=== PATIENT | female | born 1950 | race Caucasian/White ===

== ENCOUNTER 2017-02-06 06:18 | Day surgery (SDC) ==
[2015-10-01 11:07] VITALS: BMI 26.6
[2017-02-06] MEDS ORDERED: LIDOCAINE 2% 20 ML MDV ONE (07:10)
[2017-02-06] MEDS ORDERED: LIDOCAINE 1% 20 ML MDV ID ONE (07:10)
[2017-02-06] MEDS ORDERED: VERSED ONE (08:05)
[2017-02-06] MEDS ORDERED: DIPRIVAN 20 ML VIAL IVP ONE (08:05)
[2017-02-06] MEDS ORDERED: LIDOCAINE HCL 2% LUER-JET ONE (08:05)
[2017-02-06 09:26] VITALS: BP 105/64; TEMP 98.2
--- NOTE | 2017-02-06 15:09 | OP ---
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 She also has some lower abdominal discomfort chronically for years, a remote history of polyps unknown Histology and intermittent loose stools. MEDICATIONS: SEE ANESTHESIA NOTES. PROCEDURE: 1. ENDOSCOPY 2. Colonoscopy biopsy. REPORT: The risks, benefits, alternatives and limitations were discussed in detail with the patient. Informed consent was obtained. After adequate sedation was achieved, the video endoscope was introduced in the posterior pharynx and esophagus under direct vision and easily advanced down to the second portion of the duodenum. I then slowly withdrew. The duodenal mucosa appeared unremarkable as did the duodenal bulb. The antrum and body were relatively unremarkable. The scope was retroflexed to look at the cardia and fundus which was unremarkable. The scope was anteflexed and withdrawn back through the esophagus. At the GE junction there is mild stricturing causing very mild luminal narrowing. In the very distal esophagus there is small esophageal varices that were completely flattened. There were 0+. With the lumen decompressed they were still relatively flat. Because of the presence of varices, I did not feel it was in her best interest to dilate the stricture due to the risk of bleeding. The remaining esophagus appeared unremarkable. The patient tolerated the procedure well with stable vital signs and pulse oximetry throughout. The patient's bed was turned and digital rectal exam revealed good tone, no mass. The colonoscope was introduced into the rectum and advanced under direct visual guidance to the cecum. The cecum was identified by the appendiceal orifice and IC valve. I then slowly withdrew the scope in circumferential manner and examined the mucosa quite carefully. I looked on the proximal and distal side of folds and flexures as best as possible. I was able to retroflex the scope in the right colon and left colon to increase visualization. The colonic mucosa is remarkable all the way down to the rectum. Here in the rectum there is a little bit of inflammatory changes manifested by small patches of mucus over inflammation. I biopsied this area for histologic review I had also previously biopsied randomly from the right colon and the left colon in the sigmoid area. No other inflammatory changes are noted. Again these changes were mild and in the distal 3cm of the rectum. On retroflex view of the rectum I did see 1+ internal hemorrhoids. The patient tolerated the procedure well with stable vital signs and pulse oximetry throughout. IMPRESSION: 1. Non-engorged 0+ small soft esophageal varices 2. Otherwise unremarkable endoscopy exam 3. Minimal proctitis. I question whether this is a sign of inflammatory bowel disease or irritation from frequent defecation 4. 1+ internal hemorrhoids RECOMMENDATIONS: 1. Advised her to make sure she cuts and chews her food well 2. We will wait random biopsy results and biopsies of the rectum for histologic review. 3. We are going to send off to [facility] and IBD as GI diagnostic first step 4. Trial of Lialda 1.2 grams two tablets PO daily 5. I suggested daily fiber supplements such as Citrucel or Metamucil 8-10 grams daily 6. Office visit in six weeks to go over results. 7. Recommend screening coloscopy examination again in 10 years. 8. Recommend repeat endoscopy in three years. CC: Nikkie BENSON
== END 2017-02-06 09:55 | disposition home or self-care (01) ==
LOC: SURG 06:18
PROVIDERS: ATTEND Internal Medicine Gastroenterology
DX: Z86.010 Personal history of colon polyps (principal); R10.30 Lower abdominal pain, unspecified; D12.2 Benign neoplasm of ascending colon; D12.4 Benign neoplasm of descending colon; K62.89 Other specified diseases of anus and rectum; I85.00 Esophageal varices without bleeding; K64.8 Other hemorrhoids; R19.7 Diarrhea, unspecified; Z87.19 Personal history of other diseases of the digestive system
CPT/HCPCS: 36415

== ENCOUNTER 2018-09-19 10:32 | Inpatient (IN) | payer OTHER ==
--- NOTE | 2018-09-19 11:24 | ED.PDOC ---
General ED Provider: Dr. SHIRLEY WILKINSON Chief Complaint: Extremity Swelling/Pain Stated Complaint: Lt Leg swelling and bruises bilat lower extremities. States she bumps her legs on steps attempting to get in and out of bed. Time Seen by Physician: 11:00 Mode of Arrival: Walk-In Information Source: Family Exam Limitations: Dementia Primary Care Provider: FRANCISCO VILLASEÑOR Nursing and Triage Documentation Reviewed and Agree: Yes Does patient meet sepsis criteria?: No System Inflammatory Response Syndrome: Not Applicable Sepsis Protocol: For patient's 13 years and over: Temp is 96.8 and below OR 101 and greater Pulse >90 BPM Resp >20/minute Acutely Altered Mental Status Are patient's symptoms suggestive of a new infection, such as: -Pneumonia -Skin, Soft Tissue -Endocarditis -UTI -Bone, Joint Infection -Implantable Device -Acute Abdominal Infection -Wound Infection -Meningitis -Blood Stream Catheter Infection -Unknown Trauma/Injury Complaint Exam - Trauma Complaint/Exam Location of Pain or Injury: Reports: RLE, LLE Mechanism of Injury: Reports: Blunt trauma Onset/Duration: for past several weeks Symptoms Are: Still present Timing of Treatment: Delayed Initial Severity: Mild Current Severity: Moderate Character: Reports: Dull, Aching Aggravating: Reports: Movement, Weight-bearing Alleviating: Reports: None Associated Signs and Symptoms: Reports: Memory loss, Bruising. Denies: LOC, Confusion, Lethargy, Vomiting, Bleeding, Swelling, Extremity disuse, Painful respiration, Hoarseness, Dysphagia, Hemoptysis, Significant blood loss Related History: Denies: Similar episode, Alcohol abuse, Drug abuse, Alleged assault : No Penetrating Injury Risk Factors: Reports: None Related Surgical History: Reports: None Skin Findings: Present: Hematoma Differential Diagnoses: Contusions Review of Systems - Review Of Systems Constitutional: Reports: No symptoms, Weakness Eyes: Reports: No symptoms Ears, Nose, Mouth, Throat: Reports: No symptoms Respiratory: Reports: No symptoms Cardiac: Reports: No symptoms GI: Reports: No symptoms : Reports: No symptoms Musculoskeletal: Reports: No symptoms Skin: Reports: No symptoms Neurological: Reports: No symptoms, Cognitive dysfunction Endocrine: Reports: No symptoms Hematologic/Lymphatic: Reports: No symptoms All Other Systems: Reviewed and Negative Past Medical History - Past Medical History Previously Healthy: Yes Endocrine: Reports: None Cardiovascular: Reports: None Respiratory: Reports: None Hematological: Reports: None Gastrointestinal: Reports: None Genitourinary: Reports: None Neuro/Psych: Reports: None, Dementia Musculoskeletal: Reports: None Cancer: Reports: None Last Menstrual Period: hysterectomy - Surgical History General Surgical History: Reports: None - Family History Family History: Reports: None - Social History Smoking Status: Former smoker Hx Substance Use: No Alcohol Screening: None Physical Exam - Physical Exam Appearance: Well-appearing, No pain distress, Well-nourished Eyes: ANGELA, EOMI, Conjunctiva clear ENT: Ears normal, Nose normal, Oropharynx normal Respiratory: Airway patent, Breath sounds clear, Breath sounds equal, Respirations nonlabored Cardiovascular: RRR, Pulses normal, No rub, No murmur GI/: Soft, Nontender, No masses, Bowel sounds normal, No Organomegaly Musculoskeletal: Normal strength, ROM intact, No edema, No calf tenderness Skin: Warm, Dry, Normal color Neurological: Sensation intact, Motor intact, Reflexes intact, Cranial nerves intact, Alert, Oriented (to self location and familly ) Psychiatric: Affect appropriate, Mood appropriate Interpretation - Radiology Interpretation Radiology Results: No acute changes (No venous thrombus/CT no acute changes/ chronic ischemic changes) Re-Evaluation - Re-Evaluation Time of Re-Evaluation: 14:40 Status: Unchanged Vital Signs Stable: Yes Appearance: NAD Lungs: Clear Skin: Warm and Dry Neuro: Alert and Oriented X3 CV: RRR Physician Notification - Case Discussed Physician Notified: Dr Beckham Time of Notification: 14:30 (agrees to accept patient) Critical Care Note - Critical Care Note Total Time (mins): 60 Course - Course Hematology/Chemistry: 09/19/18 11:43 09/19/18 11:43 Orders, Labs, Meds: Lab Review 09/19/18 09/19/18 09/19/18 11:40 11:43 11:43 WBC 9.25 RBC 3.37 L Hgb 10.9 L Hct 32.0 L MCV 95.0 MCH 32.3 H MCHC 34.1 RDW Coeff of Dez 12.9 Plt Count 269 Immature Gran % (Auto) 0.4 Neut % (Auto) 75.2 Lymph % (Auto) 14.2 [place] % (Auto) 7.5 Eos % (Auto) 2.5 Baso % (Auto) 0.2 Immature Gran # (Auto) 0.0 Neut # (Auto) 7.0 H Lymph # (Auto) 1.3 [place] # (Auto) 0.7 Eos # (Auto) 0.2 Baso # (Auto) 0.0 ESR 18 PT INR APTT D-Dimer (Manual) Sodium Potassium Chloride Carbon Dioxide Anion Gap BUN Creatinine Estimated GFR (MDRD) BUN/Creatinine Ratio Glucose Calcium Magnesium 2.12 Total Bilirubin AST ALT Alkaline Phosphatase Total Protein Albumin Globulin Albumin/Globulin Ratio 09/19/18 09/19/18 09/19/18 11:43 11:43 11:43 WBC RBC Hgb Hct MCV MCH MCHC RDW Coeff of Dez Plt Count Immature Gran % (Auto) Neut % (Auto) Lymph % (Auto) [place] % (Auto) Eos % (Auto) Baso % (Auto) Immature Gran # (Auto) Neut # (Auto) Lymph # (Auto) [place] # (Auto) Eos # (Auto) Baso # (Auto) ESR PT 10.9 INR 1.09 APTT 23.9 D-Dimer (Manual) 8203.87 Sodium 138.7 Potassium 2.80 L Chloride 104.0 Carbon Dioxide 33.6 H Anion Gap 3.90 BUN 17.2 H Creatinine 0.66 Estimated GFR (MDRD) 89.00 BUN/Creatinine Ratio 26.06 Glucose 98.8 Calcium 8.81 Magnesium Total Bilirubin 0.90 AST 28.0 ALT 20.0 Alkaline Phosphatase 117.9 Total Protein 6.54 Albumin 3.41 L Globulin 3.13 Albumin/Globulin Ratio 1.08 Orders Category Date Time Status ADMIT PATIENT INPATIENT .TO [facility] (MONITORED BED) ADMISSION 09/19/18 14: 30 Active EKG-(ED ONLY) Stat CARDIO 09/19/18 11:27 Completed ACTIVITY .Complete BR CARE 09/19/18 14:30 Active BLOOD GLUCOSE MONITORING 0630,1100,1700,2100 CARE 09/19/18 14:31 Active CASE MANAGEMENT CONSULT ONCE CARE 09/19/18 14:27 Completed INCISION/WOUND CARE Q6HR CARE 09/19/18 14:27 Active INTAKE & OUTPUT Q8HR CARE 09/19/18 14:28 Active TELEMETRY MONITORING TELE CARE 09/19/18 14:31 Active VITAL SIGNS Q4HR CARE 09/19/18 14:29 Active SOFT DIET DIETARY 09/19/18 Dinner Ordered IV [ED IV/MEDIPORT/POWERPORT] .ONCE EMERGENCY 09/19/18 12:17 Active CBC W/ AUTO DIFF DAILY@0600 LAB 09/20/18 06:00 Ordered CBC W/ AUTO DIFF DAILY@0600 LAB 09/21/18 06:00 Ordered CBC W/ AUTO DIFF Stat LAB 09/19/18 11:43 Completed CMP [COMPREHENSIVE METABOLIC PANEL] Stat LAB 09/19/18 11:43 Completed COMPREHENSIVE METABOLIC PANEL DAILY@0600 LAB 09/20/18 06:00 Ordered COMPREHENSIVE METABOLIC PANEL DAILY@0600 LAB 09/21/18 06:00 Ordered D-DIMER Stat LAB 09/19/18 11:43 Completed ESR Stat LAB 09/19/18 11:43 Completed MAGNESIUM Stat LAB 09/19/18 11:40 Completed POTASSIUM Stat LAB 09/19/18 14:10 Ordered PT WITH INR Stat LAB 09/19/18 11:43 Completed PTT [PARTIAL THROMBOPLASTIN TIME] Stat LAB 09/19/18 11:43 Completed UA [URINALYSIS C & S IF INDICATED] Stat LAB 09/19/18 11:51 Ordered 0.9 % Sodium Chloride [Saline Flush] MEDS 09/19/18 12:17 Active 1 syr IVF PRN PRN Enoxaparin Sodium [Lovenox] MEDS 09/19/18 15:00 Active 30 mg SUBCUT DAILY Lorazepam Inj [Ativan] MEDS 09/19/18 12:20 Discontinued 0.5 mg IVP ONCE STA Lorazepam Inj [Ativan] MEDS 09/19/18 14:22 Discontinued 1 mg IVP ONCE STA Lorazepam [Ativan] MEDS 09/19/18 14:07 Discontinued 1 mg PO ONCE STA Potassium Chloride [K-Dur] MEDS 09/19/18 12:24 Discontinued 20 meq PO ONCE STA Potassium Chloride [Potassium Chloride Premix Run] 20 MEDS 09/19/18 12:18 Discontinued meq Premix 100 ml Water 2 bag IV ONCE Potassium Chloride [Potassium Chloride Premix Run] 200 MEDS 09/19/18 12:48 Discontinued ml IV .STK-MED Sertraline HCl [Zoloft] MEDS 09/19/18 14:23 Discontinued 25 mg PO ONCE STA RESUSCITATION STATUS Routine OTHERS 09/19/18 14:[address] HEAD W/O CONTRAST Stat RADS 09/19/18 11:27 Completed ULTRASOUND VENOUS SCAN LT. LEG [U/S VENOUS SCAN LT. LEG RADS 09/19/18 11:30 Completed ] Stat OT CONSULTATION Routine THERAPIES 09/19/18 Ordered PT CONSULT Routine THERAPIES 09/19/18 Ordered Medications Generic Name Dose Route Start Last Admin Trade Name Louisa PRN Reason Stop Dose Admin Enoxaparin Sodium 30 mg 09/19/18 15:00 Lovenox SUBCUT DAILY HORACIO Sodium Chloride 1 syr 09/19/18 12:17 09/19/18 13:08 Saline Flush IVF 1 syr PRN PRN Administration To flush IV Discontinued Medications Generic Name Dose Route Start Last Admin Trade Name Frecarlos PRN Reason Stop Dose Admin Potassium Chloride 20 meq/ 200 mls @ 100 mls/hr 09/19/18 12:18 09/19/18 13:12 Sterile Water IV 09/19/18 14:17 50 mls/hr ONCE STA Administration Lorazepam 0.5 mg 09/19/18 12:20 09/19/18 13:06 Ativan IVP 09/19/18 12:21 0.5 mg ONCE STA Administration Lorazepam 1 mg 09/19/18 14:07 09/19/18 14:40 Ativan PO 09/19/18 14:08 Not Given ONCE STA Lorazepam 1 mg 09/19/18 14:22 09/19/18 14:34 Ativan IVP 09/19/18 14:23 1 mg ONCE STA Administration Potassium Chloride 20 meq 09/19/18 12:24 09/19/18 13:07 K-Dur PO 09/19/18 12:25 20 meq ONCE STA Administration Sertraline HCl 25 mg 09/19/18 14:23 09/19/18 14:45 Zoloft PO 09/19/18 14:24 25 mg ONCE STA Administration Vital Signs: Temp Pulse Resp BP Pulse Ox 09/19/18 10:33 99.1 F 95 H 20 125/66 98 Departure - Departure Time of Disposition: 14:45 Disposition: ADMITTED INPATIENT Discharge Problem: Hypokalemia, Altered mental status, Alzheimer disease, Frequent falls Condition: Stable Pt referred to PMD for follow-up: Yes IPMP verified?: No Allergies/Adverse Reactions: Allergies ciprofloxacin [From Cipro] Adverse Reaction (Verified 09/19/18 10:45) ciprofloxacin HCl [From Cipro] Adverse Reaction (Verified 09/19/18 10:45) clindamycin Adverse Reaction (Verified 09/19/18 10:45) sulfamethoxazole [From Bactrim] Adverse Reaction (Verified 09/19/18 10:45) trimethoprim [From Bactrim] Adverse Reaction (Verified 09/19/18 10:45) iv dye Adverse Reaction (Uncoded 10/01/15 11:18) Home Medications: Ambulatory Orders Lorazepam 0.5 mg PO DAILY LAB 02/06/17 Mirtazapine 15 mg PO BEDTIME 09/19/18 Sertraline HCl 25 mg PO DAILY 09/19/18 Disposition Discussed With: Patient, Family, Other (Dr Beckham)
--- NOTE | 2018-09-19 12:02 | CT ---
EXAM: CT Head HISTORY: Mental status changes COMPARISON: 08/28/2014 TECHNIQUE: CT head performed without contrast. 3Patient rescanned due to areas of motion artifact. FINDINGS: There is no mass effect, midline shift, or intracranial hemmorhage. Hay white differenti ation is preserved. There is no extra-axial collection. The ventricles, sulci, and basal cisterns a re patent and symmetric. There is chronic ischemic disease of the white matter and cerebral volume l oss. There is no depressed calvarial fracture. Small nonspecific calcification involving the right globe is unchanged from 2014 The mastoid air cells are clear. The visualized paranasal sinuses are cl ear. There are intracranial atherosclerotic calcifications. IMPRESSION: 1. No acute intracranial abnormality. 2. Chronic ischemic disease of the white matter and cerebral volume loss.
--- NOTE | 2018-09-19 12:17 | US ---
EXAM: Left lower extremity venous Doppler duplex HISTORY: Concern for DVT with lower extremity pain and tenderness. COMPARISON: None TECHNIQUE: Sonographic and Doppler evaluation of the left lower extremity vessels from the common fe moral through the anterior tibial veins were obtained. Color Doppler wave spectral analysis was perfo rmed. Augmentation and compression techniques were also performed. FINDINGS: There is spontaneous Doppler flow seen in the left lower extremity veins from the common f emoral through the anterior tibial veins. There is normal compression and augmentation throughout th e lower extremity veins. Color Doppler wave spectral analysis is unremarkable. Sonographic appearan ce of the soft tissues are normal. IMPRESSION: No left lower extremity thrombus
[2018-09-19] MEDS ORDERED: POTASSIUM CHLORIDE PREMIX RUN 20 MEQ in PREMIX 100 ML WATER 2 BAG IV STA (12:18)
[2018-09-19] MEDS ORDERED: ATIVAN IVP STA ×2 (12:20→14:22)
[2018-09-19] MEDS ORDERED: K-DUR PO STA (12:24)
[2018-09-19] MEDS ORDERED: POTASSIUM CHLORIDE PREMIX RUN 200 ML IV ONE (12:48)
[2018-09-19] MEDS ORDERED: ATIVAN PO STA (14:07)
[2018-09-19] MEDS ORDERED: ZOLOFT PO STA (14:23)
[2018-09-19 16:31] VITALS: BMI 23.8
[2018-09-19] MEDS: LOVENOX SUBCUT SCH (17:04)
[2018-09-19] MEDS: AUGMENTIN 875-125 MG TAB PO SCH ×2 (18:50→22:24)
[2018-09-19] MEDS: PYRIDIUM PO SCH ×2 (18:51→22:24)
[2018-09-19] MEDS ORDERED: REMERON PO SCH (21:00)
[2018-09-19] MEDS ORDERED: ATIVAN PO SCH (21:00)
[2018-09-19] MEDS ORDERED: ATIVAN ONE (22:16)
[2018-09-19] MEDS: REMERON PO SCH (22:25)
[2018-09-20] MEDS: AUGMENTIN 875-125 MG TAB PO SCH ×2 (08:07→20:25)
[2018-09-20] MEDS: PYRIDIUM PO SCH ×3 (08:08→20:24)
[2018-09-20] MEDS: ATIVAN PO SCH ×2 (08:08→20:24)
[2018-09-20] MEDS: LOVENOX SUBCUT SCH (08:09)
[2018-09-20] MEDS ORDERED: SERTRALINE HCL 50 MG PO SCH (09:00)
[2018-09-20] MEDS ORDERED: ZOLOFT PO SCH ×2 (09:00)
[2018-09-20] MEDS ORDERED: ATIVAN PO SCH ×2 (09:00)
[2018-09-20] MEDS: DEPAKOTE PO SCH ×2 (16:48→20:24)
[2018-09-20] MEDS: VITAMIN B-12 IM SCH (19:42)
[2018-09-20] MEDS: SEROQUEL PO SCH ×2 (19:42→20:27)
[2018-09-20] MEDS: REMERON PO SCH (20:24)
[2018-09-20] MEDS: TYLENOL PO PRN (21:11)
[2018-09-21] MEDS: TYLENOL PO PRN ×3 (05:10→18:52)
[2018-09-21] MEDS: PYRIDIUM PO SCH (08:55)
[2018-09-21] MEDS: ATIVAN PO SCH ×2 (08:55→20:31)
[2018-09-21] MEDS: DEPAKOTE PO SCH ×2 (08:56→20:32)
[2018-09-21] MEDS: SEROQUEL PO SCH ×2 (08:56→20:31)
[2018-09-21] MEDS: AUGMENTIN 875-125 MG TAB PO SCH ×2 (08:56→20:31)
[2018-09-21] MEDS: LOVENOX SUBCUT SCH (08:57)
[2018-09-21] MEDS: VITAMIN B-12 IM SCH (08:59)
[2018-09-21] MEDS: REMERON PO SCH (20:31)
[2018-09-22] MEDS: TYLENOL PO PRN (04:35)
[2018-09-22] MEDS ORDERED: NORCO 5-325 PO STA (06:08)
[2018-09-22] MEDS: ATIVAN PO SCH ×2 (08:08→21:49)
[2018-09-22] MEDS: SEROQUEL PO SCH ×2 (08:08→21:49)
[2018-09-22] MEDS: ZOLOFT PO SCH (08:08)
[2018-09-22] MEDS: DEPAKOTE PO SCH ×2 (08:08→21:49)
[2018-09-22] MEDS: AUGMENTIN 875-125 MG TAB PO SCH ×2 (08:08→21:49)
[2018-09-22] MEDS: LOVENOX SUBCUT SCH (08:09)
[2018-09-22] MEDS: VITAMIN B-12 IM SCH (08:09)
--- NOTE | 2018-09-22 10:17 | CT ---
EXAM: Noncontrast CT of the abdomen pelvis HISTORY: Abdominal pain COMPARISON: None available. TECHNIQUE: Axial noncontrast CT of the abdomen pelvis with sagittal and coronal reformats. FINDINGS: There is a trace pericardial effusion. Noncontrast technique limits evaluation of the abdominal viscera. The unenhanced liver, spleen, adre nals, right kidney and pancreas appear unremarkable. Left renal obstructing calculi are seen with th e largest measuring 1.0 cm. No hydronephrosis is seen. No calcifications are seen along the course o f the ureters. Mild ingested material is seen in the stomach. There is mild wall thickening of the second portion o f the duodenum without adjacent inflammation. No abnormal small bowel dilation is seen. The colon eugenio ears within normal limits. The appendix is not definitely identified. A nodular density is seen adjac ent to the distal transverse colon on axial image 61 measuring 0.9 cm. There is calcified plaque of the aorta and some of its branches. No free air or free fluid is seen. T he uterus has been removed. There is comminuted fracture of the left pubic body, also involving the junction with the superior pu bic ramus and inferior pubic ramus. There is 1.3 cm of displacement at the junction with the inferio r pubic ramus. There is partially imaged fluid density in the region of the left pelvic adductor musc ulature measuring 7.9 x 4.6 cm. There is enlargement of left hip adductors with stated calcification s. Bilateral sacral ala fractures are present. There is mildly displaced fracture of the S5 body whic h is of indeterminate age. Mild presacral edema is seen. Fracture of the bilateral transverse proce sses of L5 and L4 are seen. The multilevel degenerative disc disease, up to moderate at L2-3. Multile ricardo facet arthropathy is also seen. There is 5 mm of anterolisthesis at L4-5. IMPRESSION: Comminuted, displaced fracture of the left pubic body involving the junction with the superior pubic ramus and inferior pubic ramus. Partially imaged left adductor muscle fluid density measuring at least 7.9 x 4.6 cm. Given the adjac ent fracture this likely represents hematoma. An infectious etiology would be difficult to entirely exclude. Bilateral sacral ala fractures. Age indeterminate S5 body fracture Fracture of the bilateral transverse processes of L4 and L5. Left renal nonobstructing calculi. Mild wall thickening of the second portion of the duodenum without adjacent inflammation. This could be due to underdistension however mild duodenitis cannot be excluded. 0.9 cm nodular density adjacent to the distal transverse colon, of uncertain etiology. Short interva l follow-up CT is recommended to document stability. Noncontrast exam.
[2018-09-22] MEDS ORDERED: VITAMIN D PO STA (18:28)
[2018-09-22] MEDS ORDERED: VITAMIN D PO SCH (21:00)
[2018-09-22] MEDS: REMERON PO SCH (21:50)
[2018-09-23] MEDS: NORCO 5-325 PO PRN ×2 (04:51→15:46)
[2018-09-23] MEDS: SEROQUEL PO SCH ×2 (08:54→20:22)
[2018-09-23] MEDS: ATIVAN PO SCH ×2 (08:54→20:21)
[2018-09-23] MEDS: AUGMENTIN 875-125 MG TAB PO SCH ×2 (08:54→20:22)
[2018-09-23] MEDS: DEPAKOTE PO SCH ×2 (08:54→20:22)
[2018-09-23] MEDS: LOVENOX SUBCUT SCH (08:55)
[2018-09-23] MEDS: VITAMIN B-12 IM SCH (08:55)
[2018-09-23] MEDS ORDERED: ATIVAN IM STA (10:41)
[2018-09-23] MEDS ORDERED: ATIVAN ONE (10:44)
[2018-09-23] MEDS ORDERED: ATIVAN IVP STA (10:48)
--- NOTE | 2018-09-23 11:08 | HP ---
DATE OF SERVICE: 09/19/18 CHIEF COMPLAINT: Swelling of the left lower extremity, more so with the ankle and agitation. SOURCE OF HISTORY: and emergency room records. HISTORY OF PRESENT ILLNESS: The patient in 2013 was diagnosed to have an ovarian cyst. She was referred to an NON PROFIT FIN[employer]CIAL [employer] and did undergo removal of the ovary. The patient, since the surgery, had complained of lower abdominal pain and finally had a laparoscopic exploration of the abdomen. The procedure was supposed to be an outpatient, however the patient did not regain consciousness until about 2 a.m. the day after surgery. This patient was admitted and the mentioned that she looked very pale. The patient continued to have pain and in October of 2014 did undergo a total abdominal hysterectomy. The noted that since then the patient had been forgetful and had episodes of agitation. She had seen Nikkie Garcia in [place] and later was referred to a neurologist, Dr. Orr, I am not sure about the spelling, and was seen early 2015. The patient had an MRI of the head and they were told that the patient may have dementia and that the findings were consistent with decreased brain volume. Medication given by the neurologist did not improve the problem after a while. The agitation was seemingly controlled with Lorazepam. They had again consulted Radha and she did refer her to a psychiatrist, Dr. Lombardo. She was prescribed medications and was scheduled to see him again in four months. They had tried to contact him and were unable to have satisfaction, except to continue the medication. They did go back to the neurologist and this time the patient was prescribed Zoloft 75 mg daily and Lorazepam 0.5 mg needed a day. This did seem to help initially and the patient had the agitation early in the morning and later on in the afternoon, so he divided the doses into 1/2 in the morning and 1/2 in the afternoon. That did seem to help. The patient is scheduled to see the neurologist again October 09, 2018. The mentioned also that his had problems getting up to the bed, so he constructed a step for get up to the bed. He told her to stand up and turn around and sit on the bed and lie down. The patient claimed that she strikes the step with her legs and the patient does have some bruises. The denied any fall that had occurred or witnessed by him. The patient, about a month ago, had swelling of the left leg, as well as back pain and had pain in the legs. The swelling went down after elevating the leg, but returned and so they did consult the [facility] in [place]. She had a CT scan of the lumbar spine from the description that the had mentioned. She was seen a week from the initial examination. The patient is scheduled to have an injection on September to stop the pain in the back. The swelling of the ankle and legs had worsened and so the patient was brought to the emergency room at [place]. She was seen at the emergency room and evaluation was done by Dr. Chandler and contacted me with regards to admitting the patient prior to possible admission to the usp. Dr. Chandler mentioned about the patient's behavior and maybe once this is controlled that she probably can go to the usp. She did have Doppler studies in the emergency room which was negative for any DVT, because of the left lower leg swelling. The patient also had a markedly elevated D-Dimer at 8,203.87. The patient had no respiratory symptoms. CT of the head in the emergency room revealed no acute intracranial abnormalities, chronic ischemic disease of the white matter and cerebral volume loss. The patient's medications were noted consisting of Remeron, as well as Zoloft. Both medications does have scissor eyes effects. PAST PERSONAL HISTORY: The patient had a history of mitral valve prolapse, history of liver cirrhosis, secondary to fatty liver, previous cholecystectomy, previous bladder surgery, removal of a cyst followed by laparoscopic examination because of persistent pain after the removal of the ovarian cyst and finally total abdominal hysterectomy. She also was diagnosed with L4-L5 degenerative disease. Obstetrical history of II/Para II, AB 0. The patient previously smoked, but she stopped some time ago. She did quit in 1985. She also had a previous appendectomy. Colonoscopy 2017 FAMILY HISTORY: Father had senile dementia, which he is now 88 years old and still at home being taken cared of by a daughter. Father had heart disease. SOCIAL HISTORY: The patient is and resides with her . She is retired. She used to smoke and stopped in 1985 and no alcoholic beverages. MEDICATIONS: Prior to this admission Lorazepam 1 mg tablet 1/2 tablet daily Remeron 15 mg daily at bedtime Zoloft 25 mg tablet daily ALLERGIES: Cipro, Clindamycin, Sulfamethoxazole. REVIEW OF SYSTEMS: CONSTITUTIONAL: 68 year old female who is fidgety and mobile and does not answer questions. She kept saying that she wants to go home. I asked her if she has any pain and she denied any, but the patient was noted to have pain before. She complained of pain in the back, as well as the legs and the front of the abdomen, lower. She also was noted to be going to the bathroom frequently and so a urinalysis was done, which was abnormal and the patient was presumed to have a urinary tract infection, since the sample appears to a good sampling of urine. The patient does have some ecchymosis on both legs, lower. Left lower extremity is bigger from the hip down to the foot. PHYSICAL EXAMINATION: GENERAL: The patient is a 68 year old female admitted to the hospital because of agitation, swelling of the left lower extremity and some pain in the back for about one month, prompting the consultation with the [facility] in [place]. VITAL SIGNS: On the floor, temperature 98.2, pulse 83, blood pressure 117/71, respiratory rate 18, oxygen saturation 98 at room air. She is 5'5", 142 pounds and 12.7 ounces, BMI 23.8. HEAD: Unremarkable. FACE: Symmetrical and equal with no facial weakness. EYES: Pupils equal/reactive to light about 3 mm in size. Conjunctivae slightly pale. Sclerae not icteric. MOUTH: Unremarkable. THROAT: No inflammation, tumors or exudate. NECK: No masses. No bruit. No tenderness. No rigidity. CHEST: Essentially symmetrical and equal with good expansion and no ecchymosis. LUNGS: Breath sounds are heard in both sides and somewhat diminished, but no rales or wheezing. HEART: Audible and regular with good tones. No murmurs. ABDOMEN: Slightly protuberant, soft, some wall tenderness in the lower abdomen. No masses palpable. Bowel sounds are active. LOWER EXTREMITIES: Asymmetrical with the left lower extremity edematous from the groin down to the foot. There are no adenopathies in the groin. Pedal pulses are present on both feet. UPPER EXTREMITIES: Symmetrical and equal. ASSESSMENT: 1. LEFT LOWER EXTREMITY EDEMA, ETIOLOGY UNDETERMINED 2. HISTORY OF LUMBAR PAIN AND PAIN IN THE LEG [facility] [place] ABOUT A [facility]TH AGO 3. SENILE DEMENTIA, MAYBE ALZHEIMER'S DISEASE. AGITATION AND BEHAVIOR PROBLEMS , ALTHOUGH NOT AGGRESSIVE. THIS PATIENT MAY HAVE DEMENTIA, ANTOINE BODY, DOES HAVE DEMENTIA, WELL SLEEP DISTURBANCE, SLEEP BEHAVIOR DISORDER. 4. HISTORY OF SLOW RECOVERY OF CONSCIOUSNESS POST SURGERY 5. HISTORY OF OVARIAN CYSTECTOMY 6. HISTORY OF DIAGNOSTIC LAPAROSCOPY 7. HISTORY OF TOTAL ABDOMINAL HYSTERECTOMY 8. HISTORY OF CHOLECYSTECTOMY 9. HISTORY OF APPENDECTOMY 10. MODERATE ANEMIA 11. SHE HAD COLONOSCOPY 2016. TIME SPENT: GREATER THAN 65 MINUTES MTDD
--- NOTE | 2018-09-23 11:24 | PN ---
DATE OF VISIT: 09/20/18 I have talked to Mr. Lyman today, as well as the patient's daughter with her dad. I am trying to explore about what can be done for her. I did inform them that her problem is behavior, plus agitation and seemingly the medication that had been prescribed had not worked very well. The daughter mentioned about a place in [place] and I did tell them that there is a place in [place] that has a behavioral section for people with Alzheimer's disease. I did tell them we will try to change medications and see if there would be some improvement with regards to her agitation and behavior. The patient always wants to go home and gets out of bed very frequently. I told them also that she had been going to the bathroom quite frequently and probably has a urinary tract infection and sometimes any active infection may aggravate the cognition, as well as cerebral function. She is given an antibiotic and it will be changed depending upon the results of the culture. Her left lower extremity still is swollen with the ecchymosis on both legs. Her vital signs were not determined earlier and probably because of her agitation. The telemetry also was removed since the patient was pulling on it. LUNGS: No rales or wheezing. HEART: Audible with good tones. The patient had been eating a good part of meal, 75%. She had been voiding, but no BM. MTDD
--- NOTE | 2018-09-23 11:38 | NM ---
EXAM: Whole body bone scan HISTORY: Multiple fractures COMPARISON: Radiographs of lumbar spine on 08/07/2018 showed no acute fracture. Mild degenerative di sc disease. CT of the abdomen and pelvis on 09/22/2018 showed comminuted fracture of the left pubic body. It is bilateral sacral ala fractures. Mildly displaced fracture of the S5 body. Fracture jenny ateral transverse process of L5 and L4. TECHNIQUE: Anterior and posterior whole body bone scans were obtained following the intravenous admin istration of 27 mCi of technetium 99m HDP. FINDINGS: There is significantly increased isotope activity in the sacral ala bilaterally. There is increased isotope uptake in the lumbar transverse process at L5 level. There is increased isotope ac tivity noted involving the left superior as well as inferior pubic ramus. There is a small focal act ivity in the projection of the distal right femur which appears to be an artifact. There is increase d isotope uptake in shoulder joint bilaterally representing arthritic change. Focal uptake at the le ricardo of the left wrist is the injection site. Kidneys are visualized. Soft tissues are normal. IMPRESSION: 1. There are multiple areas of increased isotope activity noted involving the sacral ala bilaterally , left superior and inferior pubic ramus and both right and left transverse processes of L5 compatibl e with fractures. 2. Small focal activity in the projection of the distal right femur most likely is an artifact. Radi ographic correlation of this area may be considered if clinically warranted. 3. Minimal scoliosis. 4. Degenerative disease shoulder joint bilaterally.
--- NOTE | 2018-09-23 11:39 | PN ---
DATE OF VISIT: 09/21/18 The patient's behavior is about the same. She was sleeping initially when I walked in. She did wake up and again trying to get of bed. She did follow instructions and she went back to bed and laid down. I did examine her. HEART: Her heart was in normal sinus rhythm. ABDOMEN: Soft with active bowel sounds and no masses.I asked her if she has any pain and she told me no. LOWER EXTREMITIES: The swelling of the left lower extremity is persistent and there were no adenopathies or masses in the groin. The pedal pulses are still present. VITAL SIGNS: At 6 p.m. on 09/21/18 showed a temperature 98, pulse 111, blood pressure 134/74, respiratory rate 18, oxygen saturation 99 at room air. The patient's B12 is within normal, but in the lowest normal at 252 nanogram per ml, range of normal [id number]. B12 injection of 1 cc daily was then ordered. Urinalysis showed E.coli and sensitive to Penicillin. This patient is receiving Augmentin 875 mg twice a day and the E.coli is sensitive to Amoxicillin Clavulanate. I am not certain as to what caused the left lower extremity edema beginning from the hip. This edema had been there for one month. Arterial blood gases showed some alkalosis, probably secondary to hyperventilation since the PCO2 was 31. The patient's irritability, as well as being fidgety and confusion persisted. MTDD
--- NOTE | 2018-09-23 13:05 | PN ---
DATE OF VISIT: 09/22/18 The patient's vital signs in the morning at 5:55 a.m. showed a temperature of 98.2, pulse rate 108, blood pressure 115/66, respiratory rate 24 because of agitation probably. Oxygen saturation 97 at room air. I did have a conversation with Mr. Lyman about 11 o'clock and this lasted for about 45 minutes. The patient's problems had dated some 4 years ago. The problem has progressed and worsened. This patient had been to a neurologist and a psychiatrist. The patient's condition has not improved. She is still agitated. I had informed Mr. Lyman that I reduced the dose of the medication that was used as an antidepressant, namely Remeron, as well as Zoloft. The Remeron was reduced to 7.5 mg from 16 and the Zoloft is every other day. No new medications were given, but if this doesn't seem to have any effect at this time. This patient, according to him, had not been given any Aricept or Namenda. The neurologist had mentioned about the medication. The patient is alert and does recognize her . She was agitated according to her when he came it, but later on did calm down after talking to her. I mentioned to him about the referral to a behavioral clinic for admission at [facility] for adult behavior unit. If that would not be possible , that maybe consider the place in [place] which has a behavioral section. The CT scan of the abdomen and pelvis was done because of the complaints of pain in the lower abdomen, as well as in the leg. The CT scan of the abdomen and pelvis does indicate fractures of the superior and inferior ramus and also sacral ala. There is also an area of fluid collection, which most likely is blood. This might have been the reason for the edema of the left lower extremity. This had been ongoing for a month or more. There is also fracture of the L4 and L5 transverse processes. There is no fracture of the vertebral body itself or any retropulsion. I did mention to Mr. Lyman that I would like to send the patient to the [facility] for them to evaluate those fractures that have been identified with the CT scan of the abdomen. I do believe now that the patient has a reason for pain. I did inform him that I hope I could admit her to the Adult Behavioral Unit at [facility] until she had been cleared by the orthopedist. Mr. Lyman told me that he had an appointment with the [facility] at 7 a.m. for blood and a doctor at 9:30 a.m. I told him that I would not be able to start talking to these possible consultants maybe until about 9 a.m. I told him that I had done some blood tests looking at Vitamin D, as well as bone density. I had ordered a whole body bone scan and I don't know if the patient would be able to stand that. MARCELINO
[2018-09-23] MEDS: REMERON PO SCH (20:23)
[2018-09-24] MEDS: NORCO 5-325 PO PRN ×3 (03:26→16:58)
[2018-09-24] MEDS: LOVENOX SUBCUT SCH (08:17)
[2018-09-24] MEDS: AUGMENTIN 875-125 MG TAB PO SCH ×2 (08:19→20:11)
[2018-09-24] MEDS: SEROQUEL PO SCH ×2 (08:19→20:13)
[2018-09-24] MEDS: ATIVAN PO SCH ×2 (08:19→20:12)
[2018-09-24] MEDS: ZOLOFT PO SCH (08:20)
[2018-09-24] MEDS: DEPAKOTE PO SCH ×2 (08:20→20:15)
[2018-09-24] MEDS: VITAMIN B-12 IM SCH (08:21)
[2018-09-24] MEDS: NAMENDA PO SCH (14:10)
[2018-09-24] MEDS: REMERON PO SCH (20:16)
[2018-09-25] MEDS: NORCO 5-325 PO PRN ×3 (01:08→17:08)
[2018-09-25] MEDS: SEROQUEL PO SCH ×2 (08:07→22:05)
[2018-09-25] MEDS: LOVENOX SUBCUT SCH (08:07)
[2018-09-25] MEDS: VITAMIN B-12 IM SCH (08:08)
[2018-09-25] MEDS: AUGMENTIN 875-125 MG TAB PO SCH ×2 (08:08→22:04)
[2018-09-25] MEDS: ATIVAN PO SCH ×2 (08:08→22:04)
[2018-09-25] MEDS: NAMENDA PO SCH (08:08)
[2018-09-25] MEDS: DEPAKOTE PO SCH ×2 (08:08→22:04)
[2018-09-25] MEDS ORDERED: ATIVAN PO STA ×2 (09:20→17:46)
[2018-09-25] MEDS ORDERED: ATIVAN ONE (09:23)
[2018-09-25] MEDS: REMERON PO SCH (22:05)
[2018-09-26] MEDS: NORCO 5-325 PO PRN ×3 (06:54→18:57)
[2018-09-26] MEDS: AUGMENTIN 875-125 MG TAB PO SCH ×2 (08:04→21:38)
[2018-09-26] MEDS: DEPAKOTE PO SCH ×2 (08:04→21:38)
[2018-09-26] MEDS: NAMENDA PO SCH (08:05)
[2018-09-26] MEDS: ATIVAN PO SCH ×2 (08:05→21:39)
[2018-09-26] MEDS: SEROQUEL PO SCH ×3 (08:05→21:46)
[2018-09-26] MEDS: ZOLOFT PO SCH (08:06)
[2018-09-26] MEDS: VITAMIN B-12 IM SCH (08:06)
[2018-09-26] MEDS: LOVENOX SUBCUT SCH (08:07)
--- NOTE | 2018-09-26 09:31 | CT ---
EXAM: CT of the chest without contrast History: Tender left scapula. Comparison: CT abdomen pelvis 09/22/2018 Technique: Multiplanar CT images through the thorax were obtained without the administration of IV c ontrast Findings: Heart is mildly enlarged. Small pericardial effusion. Coronary calcifications. No thora cic aortic aneurysm. No axillary lymphadenopathy. 2.5 cm right thyroid nodule. No mediastinal or h ilar lymphadenopathy. No consolidation. Trace bilateral pleural effusions. No pneumothorax. No holcomb spicious lung masses or lung nodules. Within the visualized upper abdomen, status post cholecystectomy. Calcification seen within the left kidney with the largest measuring 6 mm. There is scarring within the inferior pole of the left kidn ey. Torre. Degenerative changes of the spine. A chronic old healed fracture deformity of the medial right clavicle. There is a moderately displaced fracture involving the coracoid process of the left scapula. Impression: 1. Moderately displaced fracture of the coracoid process of the left scapula. 2. No acute intrathoracic process. 3. Mild cardiomegaly and small pericardial effusion. 4. Coronary artery disease. 5. Right thyroid nodule. 6. Left nephrolithiasis
[2018-09-26] MEDS: REMERON PO SCH (21:39)
[2018-09-26] MEDS ORDERED: SEROQUEL ONE (21:43)
[2018-09-26 23:34] VITALS: TEMP 97.9
[2018-09-27] MEDS: NORCO 5-325 PO PRN (04:32)
[2018-09-27 05:53] VITALS: BP 123/71
[2018-09-27] MEDS: SEROQUEL PO SCH (08:03)
[2018-09-27] MEDS: ATIVAN PO SCH (08:03)
[2018-09-27] MEDS: AUGMENTIN 875-125 MG TAB PO SCH (08:03)
[2018-09-27] MEDS: NAMENDA PO SCH (08:04)
[2018-09-27] MEDS: DEPAKOTE PO SCH (08:04)
[2018-09-27] MEDS: VITAMIN B-12 IM SCH (08:05)
[2018-09-27] MEDS: LOVENOX SUBCUT SCH (08:06)
--- NOTE | 2018-09-30 13:59 | DS ---
DATE OF SERVICE: 09/27/18 PATIENT IDENTIFICATION: 68-year-old female who had been experiencing restlessness, forgetfulness since about 4 to 5 years ago. The remembered that the problem began after her total abdominal hysterectomy in October 2014. They had a series of MANAGER PERSONNEL SELECTION surgeries beginning with removal of the ovary followed by laparoscopic endoscopy and then total abdominal hysterectomy. The patient had seen the primary care in [place], Nikkie Garcia and was referred to a neurologist. She had been to the neurologist twice to my understanding and has an appointment upcoming 10/13/18. They have seen Dr. Lopez, Psychiatrist and was prescribed medications. The medication was not helping and they had tried to get in touch with Dr. Lopez and they were advised to continue the medication. She had been also to the [facility] in [place] because of pain in the back plus swelling of the left lower extremity. She was seen twice and scheduled to be back at the [facility] on 10/03/18 for an injection/treatment to the back. The patient was brought to the hospital at [place] emergency room. She was seen by Dr. Chandler and the chief complaint was swelling of the left lower extremity, ecchymosis of the bilateral lower extremities. Doppler studies were done of the left lower extremities showing negative findings for DVT. The emergency room physician felt that the patient needed admission to the hospital prior to admission to usp care facility, alf. The patient was given Lorazepam 1/2 mg intravenously in the emergency room followed by 1 mg p.o. because of restlessness. That had not been mentioned in the course of my conversation with the ER M.D. HOSPITAL COURSE: Course in hospital consisted of restlessness, anxiety on the day of admission which I believe is probably already at home. Zoloft was increased to 50 mg by the ER physician as well as Remeron. I did discontinue that and reduce it to the dose at home of 25 mg and the Remeron to 7.5 instead of 15. I don't know if this medication contributed to the restlessness. The patient was placed on Seroquel as well as Depokote hoping to control the behavior. The patient during this admission had a CT scan of the head showing no acute intracranial processes. Doppler studies of the left lower extremity because of swelling showed no DVT. CT scan of the abdomen and pelvis done on 09/22/18 revealed comminuted displaced fracture of the left pubic body involving the junction of the superior and inferior pubic rami. Partially imaged left adductor muscle had fluid density measuring 7.9 x 4.6 cm. Given the proximity to fracture that this may be a hematoma according to the radiologist. Also had bilateral sacral ala fracture, age indeterminate. Fracture of the bilateral transverse processes of L4 and L5 are seen. There is also a fracture of the S5 body, mild wall thickening of the second portion of the duodenum without any adjacent inflammation, cause undetermined. A 0.9 cm nodular density adjacent to the distal transverse colon of uncertain etiology. Followup was advised. All body bone scan done 09/23/18 showed multiple areas of increased isotope activity involving the sacral ala bilaterally, left superior and inferior pubic ramus and both right and left transverse processes of L5 compatible with fractures. Small focus of activity in the projection of the right distal femur likely artifact. Records were sent to Dr. Oropeza for further evaluation and advice. The patient was seen by Dr. Oropeza on 09/25/18. The Seroquel was increased. The Depakote was left in place. The behavior seemed to have remained the same. She was never combative but I had advised the nursing staff to talk to her slowly and softly, never to contradict her. Contradicting her and shouting or raising the voice may not be helpful. CT scan of the chest showed a fracture of the coracoid process of the left scapula. I am not certain as to what caused the fracture. The patient was transferred in the morning of 09/27/18. A DEXA scan had been scheduled but never accomplished. The patient was given an initial dose of the Namenda. FINAL DIAGNOSES: 1. DEMENTIA, POSSIBLE LEWY BODY 2. RESTLESSNESS AND ANXIETY MAY BE SECONDARY TO #1 3. FRACTURES SUPERIOR AND INFERIOR PUBIC RAMI 4. FRACTURES BILATERA SACRAL ALA 5. FRACTURE BILATERAL TRANSVERSE PROCESSES OF L5 6. FRACTURE OF CORACOID PROCESS, LEFT SCAPULA 7. MODERATE ANEMIA PROGNOSIS: Poor TIME SPENT: GREATER THAN 30 MINUTES MTDD
--- NOTE | 2018-09-30 14:24 | PN ---
DATE OF SERVICE: 09/23/18 SUBJECTIVE: The patient is alert and restless. She gets out of her bed and stands up without any facial grimaces. The left lower extremity is still edematous. The patient has a bed at [facility] and [facility]. I, however, felt that this probably not the place for her for now. It eventually would be but she needed to go to a behavioral unit for people who have senile dementia. I mentioned to Ruth Llamas R.N., the patient coordinator and she told me that there are other places aside from [place] such as [place] or [facility]. There is also a behavioral unit at [facility]. Will try to get in touch with them. Hopefully will be able to transfer her to that facility. In the meantime will try to increase the medications, hopefully reduce the restlessness. The patient has not mentioned any visual or auditory hallucination at this time. She is not oriented to time and place. She is oriented to person, her . Vital signs 09/23/18 at 5:40 p.m. showed a temperature of 98.4, pulse 106, BP 118/70, respiratory rate 18, oxygen saturation 98 on room air. The patient, when asked if she has pain, she denies any; however, she does complain of pain in the lower anterior abdomen probably the symphysis as well as back pain. She is given some narcotic analgesics intermittently. Condition is stable. [facility]
--- NOTE | 2018-09-30 14:31 | PN ---
DATE OF SERVICE: 09/24/18 SUBJECTIVE: The patient is alert and follows verbal commands. She is not combative, she is just restless. She could not stay in bed for a long time. The nurses are staying in her room watching her one on one. Temperature at 5:27 p.m. is 98.1, pulse 92, BP 144/74, oxygen saturation 97 on room air. Respiratory rate 18. The patient is alert. Vital signs are stable. She still gets up out of bed or out of chair without assistance. She is not dyspneic or tachypneic and no cyanosis. She is always asking about her . She always says that she cannot stay here but she doesn't know where she is. I had conveyed to the that we are looking for places that have a behavioral unit and also because of the fracture we will refer her to Dr. Oropeza, who had seen her about one month ago. The bone scan done yesterday showed essentially the same findings or confirmed the findings on CT scan. The patient's 25-Hydroxy Vitamin D is low so the patient was given 50,000 units of Vitamin D3 weekly and this has to be continued for about 12 to 16 weeks. Another vitamin D determination should be done at the end of that medication. The patient may need an increasing amount instead of maintenance therapy of 50,000 units monthly. DEXA scan had been ordered. The patient was evaluated for transitional care but she does not qualify or does not meet the criteria, still continuing to find a place for her. [facility]
--- NOTE | 2018-09-30 14:40 | PN ---
DATE OF SERVICE: 09/25/18 SUBJECTIVE: The patient today is alert, still restless. Vital signs early the morning of 09/25/18 at 6 a.m. showed a temperature of 97.6 , pulse 93, BP 142/79, respiratory rate 24, oxygen saturation 99 on room air. She did eat 50% of dinner. The patient today is alert, still restless, getting out of bed. She had been walking with the nurses in the hallway. The patient requires 1:1 nursing. The patient has an appointment with Dr. Oropeza, the Orthopaedic Surgeon who saw her about one month ago. Will wait for the advice of the orthopaedic surgeon with regards to the fractures that this patient has. Ruth Llamas has worked diligently to look for a place. [facility] told her that she has to be discharged and present to the emergency room and be evaluated to see if she would qualify for admission to the behavioral unit. Ms. Llamas had communicated with Raul Spivey and has a possible bed tomorrow, . Hopefully there will be an opening. Chemistry done today showed normal electrolytes and slightly elevated c02 34.6, BUN 9.8, creatinine 0.58, EGFR 104. AST slightly elevated 40.8. It was normal previously. Again, the 25-Hydroxy Vitamin D level was 15.8; normal range is 30 to 100 ng/mL. Vital signs obtained only early and late. The patient was quite restless and difficult to obtain vital signs. [facility]
--- NOTE | 2018-09-30 14:52 | PN ---
DATE OF SERVICE: 09/26/18 SUBJECTIVE: The patient is alert and did eat 40% of her dinner. I did not have any communication from Dr. Oropeza at this time. Dr. Oropeza however instructed that the patient should be at bedrest for at least 6 weeks without any exertion and see what happens. He did not recommend any immediate surgery to these areas. It is difficult for this patient since she doesn't understand or comprehend any of these instructions. Deeper sedation probably is not helpful. This patient might get some complications with deeper sedation keeping her in bed. Still hoping that we would be able to get a place at a behavioral unit. They might be able to control things better. Vital signs at 6 p.m. 09/26/18 showed a temperature 97.7, pulse 98, blood pressure 138/80, respiratory rate 20, oxygen saturation 99 on room air. Lungs had diminished breath sounds yesterday before leaving to see Dr. Oropeza but no wheezing. Heart is audible and regular. Left leg is still edematous. I had mentioned to Mr. Lyman with regards to swelling of the left leg and the presence of fluid collection which may be blood probably from the previous fracture. Doctors at the [facility] mentioned on consultation yesterday that the patient may have a spontaneous fracture. The fracture probably in the bilateral sacral ala are probably insufficiency fractures. There was communication telling me that the bed may be available at [facility] sometime this afternoon or evening or maybe tomorrow 09/27/18. This patient can be discharged when the bed is available. Ruth Llamas did mention that she did talk to Dr. Oropeza's assistance although we still do not have the written communication. The patient's CBC today showed moderate anemia with slightly lower WBC. No chemistries today. Will give the patient sometimes 1 mg of Lorazepam to control the restlessness. Seroquel increased to 100 mg twice a day. She was initiated on Memantine 5 mg daily. This patient had some problems with Aricept. The patient is still on 250 mg of Depakote twice a day. Zoloft was reduced to every other day from 25 mg daily at home. She was receiving Remeron at 15 mg at home and reduced to 7.5. At the beginning I felt that maybe hyperactivity may be somewhat aggravated by the combination of Sertraline and Remeron both Serotonin reuptake inhibitor. MTDD
== END 2018-09-27 08:43 | disposition short-term general hospital (02) | DRG 556 ==
LOC: ED 10:32 → SCU 14:36
PROVIDERS: ADMIT General Practice; ATTEND General Practice
DX: M79.89 Other specified soft tissue disorders (principal); S32.511A Fracture of superior rim of right pubis, initial encounter for closed fracture; S32.009A Unspecified fracture of unspecified lumbar vertebra, initial encounter for closed fracture; S42.13 Fracture of coracoid process; R41.3 Other amnesia; R53.1 Weakness; R41.82 Altered mental status, unspecified; G30.9 Alzheimer's disease, unspecified; G31.83 Neurocognitive disorder with Lewy bodies; F02.80 Dementia in other diseases classified elsewhere, unspecified severity, without behavioral disturbance, psychotic disturbance, mood disturbance, and anxiety; F41.9 Anxiety disorder, unspecified; E87.6 Hypokalemia; D64.9 Anemia, unspecified
CPT/HCPCS: 36415; 80053; 81001; 82306; 82607; 82803; 83735; 84132; 84443; 85025; 85379; 85610; 85651; 85730; 87086; 87186; 93005; 93010; 96365; 96376; 99284